=== PATIENT | male | born 1935 | race Caucasian/White ===

== ENCOUNTER 2019-10-11 10:54 | Outpatient (CLI) | payer MEDICARE ==
[~2019-10-11 10:54] MED LIST: ALLO100T30 PO; APIX5TAB PO; BUTE12CR TP; EXCEDRIN PM PO; FOLI0.4T2 PO; GLUC1TAB27 PO; LACT1TAB3 PO; LISI1TAB20 PO; LOSA25TA25 PO; METO25TA2 PO; METO25TA91 PO; NABU500T PO; POTA99TA14 PO; PRAV20TA2 PO; REGADENOSON 0.4 MG/5 ML SYRINGE ONE; SILD100T PO
== END 2019-10-11 23:59 | disposition home or self-care (01) ==
LOC: CFH 10:54
PROVIDERS: ATTEND Registered Nurse
DX: Z01.810 Encounter for preprocedural cardiovascular examination (principal); I25.89 Other forms of chronic ischemic heart disease; I25.10 Atherosclerotic heart disease of native coronary artery without angina pectoris; Z87.891 Personal history of nicotine dependence; Z85.46 Personal history of malignant neoplasm of prostate
CPT/HCPCS: 78452; 93017; A9502; J2785